=== PATIENT | female | born 1960 | race Caucasian/White ===

== ENCOUNTER 2019-12-01 05:52 | Emergency (ER) | payer OTHER, BC, SELFPAY ==
--- NOTE | ~2019-12-01 | XR_ITS ---
EXAMINATION: XR hip RT 2V w AP pelvis EXAM DATE: 12/01/2019 06:44 INDICATION: Initial encounter following injury, with pain of the pelvic, right hip. TECHNIQUE: Right hip frontal, crosstable lateral and 'frog-leg' projections for interpretation. Front al projection pelvis. There is no prior study for comparison. FINDINGS: Smooth right hip femoral head contour, no radiographic evidence of avascular necrosis. Sa adyan, sacroiliac joints, sacral arcuate lines are intact. There are no acute fractures or dislocation s identified. There is no subcutaneous gas. The soft tissue is unremarkable. There are no radiopa que foreign bodies. There is mild symmetric bilateral hip primary osteoarthritis. IMPRESSION: 1. XR hip RT 2V w AP pelvis exam without acute osseous findings. 2. Mild symmetric bilateral hip osteoarthritis. Reviewed, dictated and finalized at location A. GER EXPRESS
--- NOTE | ~2019-12-01 | XR_ITS ---
EXAMINATION: XR shoulder LT min 2V EXAM DATE: 12/01/2019 06:44 INDICATION: Initial encounter following injury, with pain of the left shoulder. TECHNIQUE: The following left shoulder projections obtained: frontal projection with internal rotatio n, frontal projection with external rotation, Grashey, and scapular Y view (4+ views). There is no p rior study for comparison. FINDINGS: No evidence of left shoulder rotator cuff calcific tendinosis. There is mild left should er primary osteoarthritis. There are no acute fractures or dislocations identified. There is no subc utaneous gas. The soft tissue is unremarkable. There are no radiopaque foreign bodies. IMPRESSION: 1. XR shoulder LT min 2V exam without acute osseous findings. Reviewed, dictated and finalized at location A. PENDENT AGENT MUSIC EDUCATION
[2019-12-01 05:57] VITALS: BP 133/83; PULSE 89; RESP 16; TEMP 36.4; O2SAT 99
--- NOTE | 2019-12-01 06:02 | ED.FALL ---
HPI - Fall General Chief Complaint: Fall Stated Complaint: fall Time Seen by Provider: 12/01/19 06:01 History of Present Illness HPI Narrative: She slipped and fell yesterday. She landed on her buttocks and caught herself with her left hand as well. She required help to get off the ground. She has pain in the sacrum, right hip, and left shoulder. She has been ambulatory since that time. She reports limited ROM in the left shoulder. No weakness, numbness, wound. She has not tried anything to treat her pain. Related Data Home Medications Medication Instructions Recorded Confirmed esomeprazole magnesium 40 mg PO DAILY 11/10/19 11/10/19 ferrous sulfate [Iron (ferrous 325 mg PO DAILY 11/10/19 11/10/19 sulfate)] abatacept 125 mg/mL subcutaneous 125 mg SUB-Q WEEKLY 11/13/19 auto-injector oxycodone-acetaminophen 12/01/19 Allergies Allergy/AdvReac Type Severity Reaction Status Date / Time hydrocodone AdvReac Severe Abdominal Verified 12/01/19 06:03 Pain Review of Systems Review of Systems: All systems reviewed & are unremarkable except as noted in HPI and below Constitutional: Constitutional: Denies fever(s) Eyes: Eyes: Denies change in vision Cardiovascular: Cardiovascular: Denies chest pain Respiratory: Respiratory: Denies dyspnea Gastrointestinal: Gastrointestinal: Denies abdominal pain Musculoskeletal: Musculoskeletal: Reports back pain Neurologic: Denies dizziness [facility] Past Medical History Medical History (Updated 12/01/19 @ 07:24 by Vasquez Mullins MD) Hypothyroid Mixed hyperlipidemia Obesity, morbid Rheumatoid arthritis, unspecified Surgical History Surgical History (Updated 12/01/19 @ 06:34 by Vasquez Mullins MD) H/O gastric bypass Family History Family History Mother Diabetes mellitus Hypertension Family history of elevated blood lipids Family history of cardiovascular disease Family history of malignant neoplasm of breast in first degree relative Father Hypertension Family history of lung cancer Other Family history of allergic disorder Family history of arthritis Family history of malignant neoplasm of breast Social History Social History Smoking status: Never smoker Alcohol intake: never Exam Const: General: no acute distress and alert Nutritional Appearance: obese Orientation/consciousness: patient oriented x3 HENMT: Head: normal to inspection Neck: Neck: normal visual inspection Resp: Effort & Inspection: normal respiratory effort Auscultation: clear to auscultation bilaterally Cardio: Rate: regular rate Rhythm: regular rhythm Back/Spine/Pelvis: Other: tender over saccrum Skin: General skin exam: normal color Rashes: no rashes Wounds: no wounds Neuro: General: patient oriented x3 and moves all extremities Speech: normal speech Extrem: Other: Tender over left anterior deltoid. Full ROM. Tender over right hip. Full ROM. Course Vital Signs Vital signs: Vital Signs Temperature 36.4 C 12/01/19 05:57 Pulse Rate 89 12/01/19 05:57 Respiratory Rate 16 12/01/19 05:57 Blood Pressure 133/83 12/01/19 05:57 Pulse Oximetry 99 12/01/19 05:57 Temperature 36.4 C 12/01/19 05:57 Pulse Rate 80 12/01/19 07:31 Respiratory Rate 17 12/01/19 07:31 Blood Pressure 133/83 12/01/19 07:31 Pulse Oximetry 99 12/01/19 07:31 MDM - Fall MDM Narrative Medical decision making narrative: No objective evidence of trauma on exam.. I do not suspect fracture or any significant injury. Will get x-rays to confirm.. Differential Diagnosis Differential diagnosis: Likely other (AC seperation, humerus fracture, saccral fracture, hip fracture, contusion, strain, other) Medical Records Attestation: I reviewed the patient's medical records. Lab Data Attestation: I reviewed the patient's lab r
[2019-12-01 07:31] VITALS: BP 133/83; PULSE 80; RESP 17; O2SAT 99
== END 2019-12-01 07:33 | disposition home or self-care (01) ==
PROVIDERS: Emergency Provider Emergency Medicine; PCP Family Medicine
DX: S30.0XXA Contusion of lower back and pelvis, initial encounter (principal); S46.912A Strain of unspecified muscle, fascia and tendon at shoulder and upper arm level, left arm, initial encounter; E03.9 Hypothyroidism, unspecified; E78.2 Mixed hyperlipidemia; E66.9 Obesity, unspecified; Z68.39 Body mass index [BMI] 39.0-39.9, adult; Z98.84 Bariatric surgery status; W01.0XXA Fall on same level from slipping, tripping and stumbling without subsequent striking against object, initial encounter
CPT/HCPCS: 73030; 73502; 73521; 99284

== ENCOUNTER 2020-08-27 08:59 | Outpatient (CLI) | payer BC, SELFPAY ==
--- NOTE | ~2020-08-27 | MM_ITS ---
EXAMINATION: MM screening keyanna BI w cheryle HISTORY: Screening TECHNIQUE: Craniocaudal and mediolateral oblique 3-D tomosynthesis images were obtained and synthetic 2-D images were generated. CAD analysis was submitted and interpreted. COMPARISON: Comparison to multiple prior studies sequentially, with oldest reviewed study dated 04/06. BREAST PARENCHYMAL COMPOSITION: There are scattered areas of fibroglandular density. FINDINGS: There is a cluster of nonspecific calcifications in the upper outer quadrant of the left br east. No mammographic evidence for malignancy in the right breast. IMPRESSION: 1. Clustered nonspecific right breast calcifications. 2. Magnification views are recommended. BI-RADS Category 0: Incomplete: Needs additional imaging evaluation. Reviewed, dictated and finalized at location A.
== END 2020-08-27 09:00 | disposition home or self-care (01) ==
PROVIDERS: PCP Family Medicine; Visit Provider Family Medicine
DX: Z12.31 Encounter for screening mammogram for malignant neoplasm of breast (principal); R92.8 Other abnormal and inconclusive findings on diagnostic imaging of breast
CPT/HCPCS: 77063; 77067

== ENCOUNTER 2020-09-03 14:14 | Outpatient (CLI) | payer BC, SELFPAY ==
--- NOTE | ~2020-09-03 | MMUS_ITS ---
EXAMINATION: MM diagnostic mammo unilat LT, US breast LT limited HISTORY: Low ventricles seen or significant clustered nonspecific right breast calcifications reporte d in upper outer quadrant of left breast on 08/27/2020 screening mammogram TECHNIQUE: Additional 3-D ML tomosynthesis images of left breast were performed and synthetic 2-D efrain ges were generated. Magnification views of left breast. CAD analysis was submitted and interpreted. H igh resolution breast ultrasound was performed. COMPARISON: 08/27/2020 bilateral digital screening mammogram 06/09/2019 bilateral digital screening mammogram FINDINGS: MAMMOGRAPHIC FINDINGS: There are numerous calcified microhematomas of the left breast in multiple punctate benign-appearing microcalcifications. However, there is one cluster of grouped granular appearing indeterminate microc alcifications in the upper outer quadrant of the left breast. ULTRASOUND: Sonographic interrogation of the upper outer quadrant left breast reveals no evidence of suspicious m ass or shadowing. IMPRESSION: 1. Indeterminate cluster grouped microcalcifications in the upper outer quadrant of left breast 2. . Stereotactic biopsy of cluster grouped microcalcifications in upper outer quadrant of left breas t is recommended BI-RADS category 4, suspicious findings. Dr. Whitaker telephoned the report to Dr. Pacheco's captain's assistant's voicemail on 09/03/2020 at 1520 hours. Reviewed, dictated and finalized at location A. IMPRESSION: 1. Indeterminate cluster grouped microcalcifications in the upper outer quadran t of left breast 2. . Stereotactic biopsy of cluster grouped microcalcifications in upper outer quadrant of left breast is recommended BI-RADS category 4, suspicious findings. Dr. Whitaker telephoned the report to Dr. Pacheco's captain's assistant's voicemail on 09/03/20 at 1520 hours. IMPRESSION: 1. Indeterminate cluster grouped microcalcifications in the upper outer quadran t of left breast 2. . Stereotactic biopsy of cluster grouped microcalcifications in upper outer quadrant of left breast is recommended BI-RADS category 4, suspicious findings. Dr. Whitaker telephoned the report to Dr. Pacheco's captain's assistant's voicemail on 09/03/20 20 at 1520 hours.
== END 2020-09-03 14:15 | disposition home or self-care (01) ==
LOC: ANHIMG 14:16
PROVIDERS: PCP Family Medicine; Visit Provider Family Medicine
DX: R92.1 Mammographic calcification found on diagnostic imaging of breast (principal)
CPT/HCPCS: 76642; 77065

== ENCOUNTER 2020-09-17 10:39 | Outpatient (CLI) | payer BC, SELFPAY ==
--- NOTE | ~2020-09-17 | MM_ITS ---
MM stereotactic bx LT, MM post biopsy diagnostic LT, MM stereotactic specimen LT EXAMINATION: MM ster eotactic bx LT, MM post biopsy diagnostic LT, MM stereotactic specimen LT DATE: 09/17/2020 INDICATION: Abnormal calcifications in the left breast. Stereotactic core biopsy is requested evalua te for malignancy.] TECHNIQUE AND FINDINGS: The risks and potential benefits of the procedure were discussed with the patient and written informe d consent was obtained. The patient was placed in the prone position clustered at the table with the left breast in craniocaudal compression, and the area of interest was localized and targeted utilizi ng digital imaging with stereotaxis. After sterile preparation of the skin, 1% lidocaine was utilized for local anesthesia at the skin pun cture site and 1% lidocaine with epinephrine was utilized for deeper local anesthesia/is about the bi opsy site. A 9G [employer] vacuum assisted biopsy needle was advanced to the level of the calcification o f interest from a cephalad approach utilizing stereotactic guidance and a total of 6 tissue core biop sies were obtained. A specimen radiograph demonstrates that the calcifications of interest are included within the tissue cores. A tissue marker clip was then placed at the biopsy site. The needle was removed and hemosta sis was achieved. The patient tolerated the procedure well and there is no evidence of significant i mmediate complication. The patient was given verbal as well as written postprocedural instructions p rior to discharge from the department. Tissue cores were submitted to surgical pathology for histolo gic analysis. A 2-view left unilateral digital mammogram was obtained post procedure and this demonstrates that the tissue marker clip is in expected position.] IMPRESSION: 1. Successful stereotactic biopsy of calcifications in the upper outer quadrant of the left breast, followed by tissue marker clip placement. Please refer to pathology report for histologic analysis. Reviewed, dictated and finalized at location A. WORKER IMPRESSION: 1. Successful stereotactic biopsy of calcifications in the upper outer quadran t of the left breast, followed by tissue marker clip placement. Please refer t o pathology report for histologic analysis. IMPRESSION: 1. Successful stereotactic biopsy of calcifications in the upper outer quadran t of the left breast, followed by tissue marker clip placement. Please refer t o pathology report for histologic analysis.
== END 2020-09-17 10:40 | disposition home or self-care (01) ==
PROVIDERS: PCP Family Medicine; Visit Provider Family Medicine
DX: R92.1 Mammographic calcification found on diagnostic imaging of breast (principal)
CPT/HCPCS: 19081; 77065; 88305; 88342

== ENCOUNTER 2020-11-12 06:50 | Outpatient (NON) | payer BC, SELFPAY ==
[2020-11-12 18:45] LABS: SARS-CoV-2 RNA PCR Positive
== END 2020-11-12 06:51 ==
PROVIDERS: PCP Family Medicine; Visit Provider Physician Assistant
DX: U07.1 COVID-19 (principal)
CPT/HCPCS: 87635; C9803; U0003

== ENCOUNTER 2021-10-15 09:28 | Outpatient (CLI) | payer BC, SELFPAY ==
--- NOTE | ~2021-10-15 | MM_ITS ---
EXAMINATION: MM screening keyanna BI w cheryle HISTORY: Screening mammogram TECHNIQUE: Craniocaudal and mediolateral oblique 3-D tomosynthesis images were obtained and synthetic 2-D images were generated. CAD analysis was submitted and interpreted. COMPARISON: 09/03/2020 diagnostic left mammogram and limited left breast ultrasound 08/27/2020, 06/09/2019, 12/11/2016 bilateral screening mammogram examinations BREAST PARENCHYMAL COMPOSITION: There are scattered areas of fibroglandular density. FINDINGS: Previously reported subtle grouped microcalcifications in the upper outer quadrant of the l eft breast are no longer identified; history of benign left breast biopsy in 2019. There are multiple bilateral scattered benign calcifications. Subtle microcalcifications are noted posteriorly in the upper outer right breast. Diagnostic right ma mmogram with magnification views is recommended. Subtle grouped granular appearing microcalcifications are noted in the outer left breast at mid depth on craniocaudal view. Diagnostic left mammogram with magnification views is recommended.. IMPRESSION: 1. Bilateral indeterminate microcalcifications 2. Bilateral diagnostic mammography with magnification views is recommended BI-RADS Category 0: Incomplete: Needs additional imaging evaluation. Reviewed, dictated and finalized at location A. C THEORY TEACHER
== END 2021-10-15 09:29 | disposition home or self-care (01) ==
LOC: ANHIMG 09:30
PROVIDERS: PCP Family Medicine; Visit Provider Family Medicine
DX: Z12.31 Encounter for screening mammogram for malignant neoplasm of breast (principal); R92.8 Other abnormal and inconclusive findings on diagnostic imaging of breast
CPT/HCPCS: 77063; 77067

== ENCOUNTER 2021-11-03 10:41 | Outpatient (CLI) | payer BC, SELFPAY ==
--- NOTE | ~2021-11-03 | MM_ITS ---
EXAMINATION: MM diagnostic mammo BI HISTORY: Bilateral indeterminate breast calcifications on screening mammography TECHNIQUE: Additional views of the breasts were performed. CAD analysis was submitted and interpreted . COMPARISON: 10/15/2020, 09/03/2020, 08/27/2020, 06/09/2019 FINDINGS: Left breast: There are stable grouped calcifications in the middle/posterior third of the upper-outer quadrant breast at the 2:00 location approximately 12 cm from the nipple which have undergone interv al biopsy. Right breast: No suspicious grouped calcifications are identified with magnification views of the rig ht breast. IMPRESSION: 1. No mammographic evidence of malignancy. 2. Recommend routine screening mammography in one year. BI-RADS Category 2: Benign finding(s). Reviewed, dictated and finalized at location A. ENTIALER
== END 2021-11-03 10:42 | disposition home or self-care (01) ==
LOC: ANHIMG 10:43
PROVIDERS: PCP Family Medicine; Visit Provider Family Medicine
DX: R92.1 Mammographic calcification found on diagnostic imaging of breast (principal)
CPT/HCPCS: 77066

== ENCOUNTER 2023-01-08 14:21 | Outpatient (NON) | payer BC, SELFPAY ==
[2023-01-08 16:05] LABS: IFOB Positive Control Positive; Immunochemical Fecal Occult Bl Negative (N)
== END 2023-01-08 14:22 | disposition home or self-care (01) ==
PROVIDERS: PCP Family Medicine; Visit Provider Family Medicine
DX: Z12.11 Encounter for screening for malignant neoplasm of colon (principal)
CPT/HCPCS: 82274

== ENCOUNTER 2023-01-19 08:02 | Outpatient (CLI) | payer BC, SELFPAY ==
--- NOTE | ~2023-01-19 | DEXA_ITS ---
Bone Density Report Name: MARI CORDERO Age: 62 Sex: Female Ethnicity: White Date of : 1960 Indication: osteopenia; prior fracture; hysterectomy; rheumatoid arthritis; postmenopausal Referring Provider: ADAIR WALLER Study: Bone densitometry was performed. Exam Date: January 19, 2023 Accession number: [id number] Bone Density: Region BMD T-score Z-score Classification AP Spine(L1-L4) 0.694 -3.2 -1.5 Osteoporosis Femoral Neck (Left) 0.584 -2.4 -0.9 Osteopenia Total Hip (Left) 0.693 -2.0 -0.8 Osteopenia Femoral Neck (Right) 0.584 -2.4 -0.9 Osteopenia Total Hip (Right) 0.712 -1.9 -0.7 Osteopenia Total Hip Mean 0.702 -2.0 -0.8 Osteopenia World Health Organization criteria for BMD impression classify patients as: Normal (T-score at or above -1.0), Osteopenia (T-score between -1.0 and -2.5), or Osteoporosis (T-score at or below -2.5). 10-year Fracture Risk: FRAX not reported because: Some T-score for Spine Total or Hip Total or Femoral Neck at or below -2.5 Previous Exams: Region Exam Age BMD T-score BMD Change BMD Change Date g/cm2 vs Baseline vs Previous AP Spine (L1-L4) 01/19/2023 62 0.694 -3.2 -0.129 (-15.6% -0.129 (-15.6% 06/09/2019 59 0.823 -2.0 Total Hip(Left) 01/19/2023 62 0.693 -2.0 -0.044 (-5.9%) -0.044 (-5.9%) 06/09/2019 59 0.736 -1.7 Total Hip(Right) 01/19/2023 62 0.712 -1.9 -0.028 (-3.8%) -0.028 (-3.8%) 06/09/2019 59 0.740 -1.7 *Denotes significance at 95% confidence level, LSC for AP Spine = 0.022 g/cm2, LSC for Total Hip = 0.027 g/cm2 # Denotes dissimilar scan types or analysis methods Clinical Information Provided by Patient: Has had a low trauma fracture Has rheumatoid arthritis Has used the following medications: Vitamin D Has the following medical conditions: Hysterectomy Patient maximum height was 67 Menopause Age: 23 No regular weight bearing exercise Does not regularly consume dairy products Drinks caffeinated beverages Onset of menses at age 10 Number of children 1 Impression: The patient has established osteoporosis, based on the Total Spine T-score and the existence of a prior fracture. The patient has risk factors, including: previous fracture. The BMD for the AP Spine (L1-L4) decreased, changing by -15.6% since the last DXA exam. The BMD for the Total Hip(Right) decreased, changing by -3.8% since the last DXA exam. Discussion: HIGH RISK OF FRACTURE. BONE DENSITY IS UNDESIRABLY
--- NOTE | ~2023-01-19 | MM_ITS ---
EXAMINATION: MM screening keyanna BI w cheryle HISTORY: Screening mammogram, family history of breast cancer in her mother. TECHNIQUE: Craniocaudal and mediolateral oblique 3-D tomosynthesis images were obtained and synthetic 2-D images were generated. CAD analysis was submitted and interpreted. COMPARISON: 11/03/2021, 10/15/2021, 09/03/2020, 08/27/2020, 06/09/2019 BREAST PARENCHYMAL COMPOSITION: The breasts are heterogeneously dense, which may obscure small masses . FINDINGS: Scattered benign-appearing calcifications are present. No suspicious mass, calcification, o r architectural distortion are identified in either breast to suggest malignancy. There has been no s uspicious interval change. IMPRESSION: 1. No mammographic evidence of malignancy. 2. Recommend routine screening mammography in one year. BI-RADS Category 2: Benign finding(s). Reviewed, dictated and finalized at location A. ER OPERATOR
== END 2023-01-19 08:03 | disposition home or self-care (01) ==
PROVIDERS: PCP Family Medicine; Visit Provider Family Medicine
DX: Z12.31 Encounter for screening mammogram for malignant neoplasm of breast (principal); Z78.0 Asymptomatic menopausal state; M81.0 Age-related osteoporosis without current pathological fracture; M85.852 Other specified disorders of bone density and structure, left thigh; M85.851 Other specified disorders of bone density and structure, right thigh
CPT/HCPCS: 77063; 77067; 77080

== ENCOUNTER 2024-03-09 13:37 | Outpatient (CLI) | payer BC, OTHER, SELFPAY ==
[2024-03-09 21:39] LABS: Alanine Aminotransferase 16 U/L (6-35); Albumin Level 3.9 g/dL (3.5-5.1); Alkaline Phosphatase 173 U/L (38-126); Anion Gap 3 mmol/L (4-12); Aspartate Amino Transferase 32 U/L (14-36); Bilirubin,Total 0.6 mg/dL (0.2-1.3); Blood Urea Nitrogen 10 mg/dL (7-17); Calcium 9.4 mg/dL (8.4-10.2); Carbon Dioxide 30 mmol/L (22-30); Chloride 107 mmol/L (98-107); Cholesterol 184 mg/dL (0-200); Estimated Glomerular Filt Rate > 60; Glucose 106 mg/dL (65-110); HDL Direct 61 mg/dL; Potassium 4.5 mmol/L (3.4-5.0); Sodium 140 mmol/L (137-145); Triglycerides 120 mg/dL (<150)
[2024-03-09 21:51] LABS: LDL Cholesterol Direct 92 mg/dL
[2024-03-09 22:04] LABS: Hepatitis C Virus Antibody Negative (Negative)
[2024-03-09 22:22] LABS: Hemoglobin A1C 5.3 % (<5.7)
== END 2024-03-09 13:38 | disposition home or self-care (01) ==
LOC: ANHGOSHLAB 13:39
PROVIDERS: PCP Family Medicine; Visit Provider Family Medicine
DX: E55.9 Vitamin D deficiency, unspecified (principal); E78.2 Mixed hyperlipidemia; E74.39 Other disorders of intestinal carbohydrate absorption; Z11.59 Encounter for screening for other viral diseases; E53.8 Deficiency of other specified B group vitamins; E03.9 Hypothyroidism, unspecified
CPT/HCPCS: 36415; 80053; 80061; 82306; 82607; 83036; 84443; 86803

== ENCOUNTER 2024-08-04 13:59 | Outpatient (CLI) | payer BC, OTHER, SELFPAY ==
--- NOTE | ~2024-08-04 | MM_ITS ---
EXAMINATION: MM screening keyanna BI w cheryle HISTORY: Screening mammogram, family history of breast cancer in her mother. TECHNIQUE: Craniocaudal and mediolateral oblique 3-D tomosynthesis images were obtained and synthetic 2-D images were generated. CAD analysis was submitted and interpreted. COMPARISON: 01/19/2023, 10/15/2021 BREAST PARENCHYMAL COMPOSITION:Not Dense. There are scattered areas of fibroglandular density. FINDINGS: No suspicious mass, calcification, or architectural distortion are identified in either evert ast to suggest malignancy. There has been no suspicious interval change. IMPRESSION: No mammographic evidence of malignancy. Recommend routine screening mammography in one year. BI-RADS Category 1: Negative Reviewed, dictated and finalized at location .
== END 2024-08-04 14:00 | disposition home or self-care (01) ==
LOC: ANHIMG 14:02
PROVIDERS: PCP Family Medicine; Visit Provider Family Medicine
DX: Z12.31 Encounter for screening mammogram for malignant neoplasm of breast (principal)
CPT/HCPCS: 77063; 77067

== ENCOUNTER 2024-08-25 13:37 | Outpatient (CLI) | payer BC, OTHER, SELFPAY ==
--- NOTE | ~2024-08-25 | XR_ITS ---
Right wrist Technique: PA, oblique, lateral, and ulnar deviation views were obtained. Clinical History: Pain Findings: No acute fracture or dislocation is seen. Osseous alignment is anatomic. Joint spaces are p reserved. Soft tissues are unremarkable. Impression: Unremarkable right wrist radiographs. Reviewed, dictated and finalized at location . Impression: Unremarkable right wrist radiographs.
== END 2024-08-25 13:38 | disposition home or self-care (01) ==
LOC: ANHASCIMG 13:41
PROVIDERS: PCP Family Medicine; Visit Provider Student in an Organized Health Care Education/Training Program
DX: M25.531 Pain in right wrist (principal)
CPT/HCPCS: 73110

== ENCOUNTER 2024-09-19 11:25 | Outpatient (CLI) | payer BC, OTHER, SELFPAY ==
--- NOTE | ~2024-09-19 | CT_ITS ---
Non-contrast Head CT History: Memory change Technique: Axial non-contrast imaging of the brain was performed. Dose reduction technique was used on this scan by utilizing automated exposure control and iterative reconstruction technique. The dose -length product (DLP) was 726.40 mGy-cm. Findings: There is no evidence of intracranial hemorrhage, mass lesion, or acute infarct. There are minimal chronic white matter changes in the periventricular white matter/subcortical white matter heather aterally.. The ventricles and subarachnoid spaces are normal in size. The calvarium appears normal. The visualized paranasal sinuses and mastoid air cells are clear. Impression: Minimal chronic microvascular ischemic changes. No intracranial hemorrhage, mass lesion, or acute infarct evident. Reviewed, dictated and finalized at [facility]. IESEL PRODUCTION TECHNICIAN Impression: Minimal chronic microvascular ischemic changes. No intracranial hemorrhage, mass lesion, or acute infarct evident.
== END 2024-09-19 11:26 | disposition home or self-care (01) ==
LOC: GOSHIMG 11:26
PROVIDERS: PCP Family Medicine; Visit Provider Student in an Organized Health Care Education/Training Program
DX: R41.3 Other amnesia (principal)
CPT/HCPCS: 70450

== ENCOUNTER 2025-04-19 10:06 | Outpatient (NON) | payer BC, MEDICARE, SELFPAY ==
--- OUTSIDE RECORDS SUMMARY | 2025-04-19 11:03 | XMS_ITS | Patient Health Record ---
Author Organization [facility] josé miguel Address [address] [place] [address] Care Team Providers Care Sidewalk Inspector Name Role Phone Hernandez Santana MD Primary Care Provider Cecelia De La Paz Unavailable [phone] Hoang Pacheco MD Unavailable Unavailable Allergies Allergen (clinical drug ingredient) Drug/Non Drug Allergy documented on EMR Reaction Allergy Type Onset Date Status Iodine Unknown Drug Allergy 02/19/2018 Active hydroxychloroquine Plaquenil Reaction: dry mouth Notes: 09/29/2019 - dry mouth Drug Allergy 09/29/2019 Active infliximab Remicade Reaction: caused psoriasis Drug Allergy 02/19/2018 Active Results Component Value Reference Range Notes CASSANDRA reflex titer pattern JENNIFFER + dsDNA Reviewed date:10/17/2024 04:14:38 PM Interpretation: Performing Lab:[facility] , [address]. [facility] [address] Notes/Report: CASSANDRA, Qual Positive 1:160 Interpretive Data Normal range for CASSANDRA Qualitative Antibody = Negative. 1. CASSANDRA is performed using indirect immunofluorescence against HEp-2 cells 2. CASSANDRA titers are performed on all positive qualitative results. 3. A significantly positive CASSANDRA result is defined as a positive nuclear fluorescence at a titer of 1:80 or greater. 4. 15% of normal people above age 65 have significantly positive CASSANDRA results. 5% or less of normal people age 65 or under have significantly positive CASSANDRA results. Current interpretive data was last revised on 2020. Testing performed by: [facility], [address] [place]., [address] CASSANDRA, Fili 1:160 Testing performed by: [facility], [address] [place]., [address] CASSANDRA Pattern 1 Speckled Testing performed by: [facility], [address] [facility], [place]., [address] Anti-CCP (Cyclic Citrullinat ed Peptide Ab) Reviewed date:10/17/2024 01:42:56 PM Interpretation: Performing Lab:[facility] , [address] [place] [address]. [facility] [address] Notes/Report: CCP Ab >300.0 <=2.9 units/mL Interpretive data Negative: <3 units/mL Positive: > or equal to 3 units/mL Current interpretive data was last revised on 2017. C Reactive Protein Reviewed date:10/16/2024 04:42:55 PM Interpretation: Performing Lab:[facility] , [address] [place] [address]. [facility] [address] Notes/Report: C-Reactive Protein <3.0 <=10.0 mg/L CBC w auto diff Reviewed date:10/16/2024 04:31:41 PM Interpretation: Performing Lab:[facility] , [address] [place] [address]. [facility] [address] Notes/Report: WBC 4.4 3.8-9.9 K/cumm Hgb 11.5 11.9-15.5 g/dL Hct 37.6 35.6-45.5 % Platelet Ct 236 150-400 K/cumm MPV 11.7 9.1-12.3 fL RBC 4.28 3.90-5.20 M/cumm MCV 87.9 81.3-96.4 fL MCH 26.9 27.1-33.3 pg MCHC 30.6 32.3-35.7 g/dL RDW CV 14.3 11.1-14.9 % RDW SD 46.3 35.7-48.1 fL NRBC Abs Auto 0.00 0.00-0.01 K/cumm Complement C3 Reviewed date:10/16/2024 04:42:55 PM Interpretation: Performing Lab:[facility] , [address] [place] [address]. [facility] [address] Notes/Report: Complement, C3 126 90-180 mg/dL Complement C4 Reviewed date:10/16/2024 04:42:55 PM Interpretation: Performing Lab:[facility] , [address] [place] [address]. [place] [address] Notes/Report: Complement, C4 27 10-40 mg/dL Comprehensive metabolic pane l (CMP) Reviewed date:10/16/2024 04:42:55 PM Interpretation: Performing Lab:[facility] , [address] [place] [address]. [place] [address] Notes/Report: Sodium 140 135-145 mmol/L Plasma Potassium 4.5 3.3-4.9 mmol/L Chloride 104 97-110 mmol/L Total CO2 27 22-32 mmol/L Anion Gap 9 2-15 mmol/L BUN 7 6-25 mg/dL Creatinine 1.08 0.60-1.10 mg/dL Glucose 89 70-199 mg/dL Interpretive Data Fasting glucose >/= 126 mg/dl is diagnostic for diabetes. Fasting is defined as no caloric intake for at least 8 hours. Fasting glucose between 100 mg/dl to 125 mg/dl is diagnostic of prediabetes. In a patient with classic symptoms of hyperglycemia or hyperglycemic crisis, a random glucose >/= 200 mg/dl is diagnostic for diabetes. In the absence of unequivocal hyperglycemia, results should be confirmed by repeat testing. The classification and Diagnosis of Diabetes Diabetes Care 2021; 46: S19-S40. Current interpretive data was last revised 2022. Total Calcium 9.0 8.5-10.3 mg/dL Total Bilirubin 0.4 0.1-1.2 mg/dL Plasma Total Protein 6.2 6.5-8.5 g/dL Albumin 3.5 3.5-5.0 g/dL Alkaline Phosphatase 113 40-130 Units/L ALT 15 7-45 Units/L AST 19 10-45 Units/L Creatine Kinase Reviewed date:10/16/2024 04:42:55 PM Interpretation: Performing Lab:[facility] , [address] [place] [address]. [place] [address] Notes/Report: Total CK 46 30-200 Units/L QTB Gold Reviewed date:10/18/2024 04:55:28 PM Interpretation: Performing Lab:[facility] , [address] [place] [address]. [place] [address] Notes/Report: QuantiFERON TB Gold Negative Negative No interferon-gamma response to M. tuberculosis antigens was detected. Latent infection with M. tuberculosis is unlikely. A single negative result does not exclude infection with M. tuberculosis. In patients at high risk for M.tuberculosis infection, a second test should be considered in accordance with the 2017 ATS/IDSA/CDC Clinical Practice Guidelines for Diagnosis of Tuberculosis in Adults and Children [Venkatesh MILES et. al. Clin. Infect. Dis. 2017;64(2):111-115]. The reference range for the 'TB1 Ag minus Nil Result' and 'TB2 Ag minus Nil Result' is an Interferon-gamma level <0.35 IU/mL. TB-Nil 0.06 TB2-Nil 0.04 Mitogen-Nil 6.84 NIL 0.00 Test Performed by: [place] [address] Compressor Mechanic: Moustapha Wade Ph.D.; CLIA# [id number] Rheumatoid Factor Reviewed date:10/16/2024 04:42:55 PM Interpretation: Performing Lab:[facility] , [address] [place] [address]. [facility] [address] Notes/Report: RF, Fili 42 <=15 IUnits/mL Sed Rate Reviewed date:10/16/2024 04:57:12 PM Interpretation: Performing Lab:[facility] , [address] [place] [address]. [facility] [address] Notes/Report: ESR 20 1-30 mm/hr Differential Automated Reviewed date:10/16/2024 04:31:41 PM Interpretation: Performing Lab:[facility] , [address] [place] [address]. [facility] [address] Notes/Report: Neut Abs 2.3 1.5-6.5 K/cumm ImmGran Abs 0.0 0.0-0.1 K/cumm Lymphocyte Abs 1.4 0.8-3.3 K/cumm Copiah Abs 0.4 0.2-0.8 K/cumm Eos Abs 0.2 0.0-0.5 K/cumm Baso Abs 0.1 0.0-0.1 K/cumm Neut Pct 52.0 Interpretive Data Percent cell count reference ranges are not reported, since discordance with absolute values may lead to misinterpretation of CBC data. Current Interpretive Data was last revised on 2018. ImmGran Pct 0.2 Interpretive Data Percent cell count reference ranges are not reported, since discordance with absolute values may lead to misinterpretation of CBC data. Current Interpretive Data was last revised on 2018. Lymph Pct 32.4 Interpretive Data Percent cell count reference ranges are not reported, since discordance with absolute values may lead to misinterpretation of CBC data. Current Interpretive Data was last revised on 2018. Copiah Pct 9.5 Interpretive Data Percent cell count reference ranges are not reported, since discordance with absolute values may lead to misinterpretation of CBC data. Current Interpretive Data was last revised on 2018. Eos Pct 4.3 Interpretive Data Percent cell count reference ranges are not reported, since discordance with absolute values may lead to misinterpretation of CBC data. Current Interpretive Data was last revised on 2018. Baso Pct 1.6 Interpretive Data Percent cell count reference ranges are not reported, since discordance with absolute values may lead to misinterpretation of CBC data. Current Interpretive Data was last revised on 2018. DS DNA Reviewed date:10/19/2024 12:12:22 PM Interpretation: Performing Lab:[facility] , [address]. [place] [address] Notes/Report: Double Stranded DNA, Fili <1.0 <=4.0 IUnits/mL Interpretive Data Negative: < or = 4 IUnits/mL Indeterminate: 5 - 9 IUnits/mL Positive: > or = 10 IUnits/mL Current interpretive data was last revised on 2017. JENNIFFER Screen Reviewed date:10/19/2024 12:12:11 PM Interpretation:Lab Result Generalized Performing Lab:[facility] , [address] [facility]. [place] [address] Notes/Report: JENNIFFER Screen Negative Negative Interpretive Data Positive Screens will be reflexed to specific testing for Antibodies against the following antigens: Antonia-1 Ab, COTTON CONVERTER Ab, Scl-70 Ab, Martell Ab, SS-A/Ro Ab, and SS-B/La Ab. Further testing for dsDNA, Centromere, or Ribosomal P antibodies is suggested in patient with a positive screen and negative specific antibodies. Current interpretive data was last revised on 2023. eGFR Reviewed date:10/16/2024 04:42:55 PM Interpretation: Performing Lab:[facility] , [address] [facility] [place] [address] Notes/Report: eGFR 57 >=60 mL/min/1.73 m2 Interpretive Data Reference Interval Normal >/= 90 mL/min/1.73m2 Mildly decreased* 60 - 89 mL/min/1.73m2 Mildly to moderately decreased 45 - 59 mL/min/1.73m2 Moderately to severely decreased 30 - 44 mL/min/1.73m2 Severely decreased 15 - 29 mL/min/1.73m2 Kidney Failure < 15 mL/min/1.73m2 *Relative to young adult level Estimated glomerular filtration rate is determined by the 2020 CKD-EPI equation recommended by the National Kidney Foundation (A Unifying Approach to GFR Estimation: Recommendations of the NKF-ASK Task Force on Reassessing the Inclusion of Race in Diagnosing Kidney Disease, JASN 2020). The CKD-EPI equation should not be used for patients with unstable renal function and has not been validated in children and those over 70. Current interpretive data was last reviewed 2021. Reason For Referral No Information Medications Medication SIG (Take, Route, Frequency, Duration) Notes Start Date End Date Status oxyCODONE-Acetaminophen 5-32 5 MG 1/2 tablet prn Oral for 30 Days Active Hydroxychloroquine Sulfate 200 MG 1 Orally once daily with food for 90 days 02/06/2025 05/07/2025 Active Esomeprazole Magnesium 40 MG TAKE 1 CAPS ULE BY MOUTH DAILY Oral for 90 Days Active Levothyroxine Sodium 50 MCG TAKE 1 TABLE T BY MOUTH DAILY Oral for 90 Days Active tiZANidine HCl 2 MG TAKE 1 TO 2 TABLETS BY MOUTH AT BEDTIME NEEDED Oral for 30 days Active Vitamin D (Ergocalciferol) 24754 UNIT take 1 capsule (50,000 unit) by oral route once weekly Oral [id number] Active FLUoxetine HCl 20 MG 1 capsule Orally On ce a day for 30 day(s) Active Vitamin B12 1000 MCG 1 tablet Orally Onc e a day for 30 day(s) Active predniSONE 5 MG 1 Oral every other day for 30 days Active Problems Problem Type SNOMED Code ICD Code Onset Dates Problem Status W/U Status Risk Notes Problem Rheumatoid arthritis (49174392) 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) Active confirmed Problem Rheumatoid arthritis (80165834) Rheumatoid arthritis without rheumatoid factor, unspecified site (M06.00) Active confirmed Problem Lupus (978788658) Lupus (M32.9) Active confirmed Problem Rheumatoid arthritis, unspecified (M06.9) Active confirmed Problem Systemic lupus erythematosus, unspecified (M32.9) Active confirmed Vital Signs Heart Rate 94 /min 02/06/2025 Temperature 98.2 degrees Fahrenheit 02/06/2025 Blood pressure diastolic 80 mm Hg 02/06/2025 Oximetry 98 % 02/06/2025 Height-cm 170.18 cm 02/06/2025 Weight-kg 105.67 kg 10/10/2024 Height 67 in 02/06/2025 Blood pressure systolic 120 mm Hg 02/06/2025 Weight 233.0 lbs 10/10/2024 BMI 36.49 kg/m2 10/10/2024 Encounters Encounter Location Date Provider Diagnosis [facility] [address] [place] [address] 10/10/2024 Cecelia Patiño Other rheumatoid arthritis with rheumatoid factor of multiple sites M05.89 ; Lupus M32.9 ; High risk medication use Z79.899 and Tooth infection K04.7 [facility] [address] [place] [address] 02/06/2025 Cecelia Patiño Other rheumatoid arthritis with rheumatoid factor of multiple sites M05.89 ; Lupus M32.9 ; High risk medication use Z79.899 and Tooth infection K04.7 [facility] [address] [place] [address] 05/29/2024 [facility] [address] [place] [address] 05/29/2024 [facility] [address] [place] [address] 05/31/2024 [facility] [address] [place] [address] 06/12/2024 [facility] [address] [place] [address] [facility] [address] [place] [address] 10/04/2024 [facility] [address] [place] [address] 10/08/2024 [facility] [address] [place] [address] 11/17/2024 [facility] [address] [place] [address] 11/29/2024 [facility] [address] [place] [address] 2025 Cecelia Patiño Assessments Encounter Date Diagnosis (ICD Code) Assessment Notes Treatment Notes Treatment Clinical Notes Section Notes 10/10/2024 Other rheumatoid arthritis with rheumatoid factor of multiple sites (ICD-10 - M05.89) will restart orencia when she changes insurance in 11/2024, labs today, contineu prednisone prn for now 02/06/2025 Other rheumatoid arthritis with rheumatoid factor of multiple sites (ICD-10 - M05.89) has open wound on left ankle, cannot start orencia, will re-try plaquenil 200mg/day, refill tizanidine, advised to decrease prednisone to 5mg qod 10/10/2024 Lupus (ICD-10 - M32.9) will restart orencia when she changes insurance in 11/2024, labs today, contineu prednisone prn for now 02/06/2025 Lupus (ICD-10 - M32.9) has open wound on left ankle, cannot start orencia, will re-try plaquenil 200mg/day, refill tizanidine, advised to decrease prednisone to 5mg qod 10/10/2024 High risk medication use (ICD-10 - Z79.899) will restart orencia when she changes insurance in 11/2024, labs today, contineu prednisone prn for now 02/06/2025 High risk medication use (ICD-10 - Z79.899) has open wound on left ankle, cannot start orencia, will re-try plaquenil 200mg/day, refill tizanidine, advised to decrease prednisone to 5mg qod 10/10/2024 Tooth infection (ICD-10 - K04.7) will restart orencia when she changes insurance in 11/2024, labs today, contineu prednisone prn for now 02/06/2025 Tooth infection (ICD-10 - K04.7) has open wound on left ankle, cannot start orencia, will re-try plaquenil 200mg/day, refill tizanidine, advised to decrease prednisone to 5mg qod Plan Of Treatment No Information Insurance Providers Payer Name Payer Address Payer Phone Subscriber Number Group Number Insured Name Patient Relationship to Insured Coverage Start Date Coverage End Date [place] [address] [place] [address] [id number] Laurita Arora Self - patient is the insured Medicare [address] [address] [place] [address] [id number] Laurita Arora Self - patient is the insured [facility] [address] [address] [place] [address] [id number] Laurita Arora Self - patient is the insured Medical (General) History Medical History History ICD Code Decreased GFR; Lupus; Rheumatoid arthritis; Surgical History Surgery Date(Month/Year) Knee surgery: left knee - torn ligaments , Date of Procedure: ; 2019-01-20
--- OUTSIDE RECORDS SUMMARY | 2025-04-19 11:03 | XMS_ITS | Clinical Summary ---
Author Organization [facility] Address [address] [place] [address] Care Team Providers Care Panel Flow Machine Operator Name Role Phone Ulises Pacheco MD Primary Care Provider [phone] Allergies Active Allergy Reactions Criticality Noted Date Comments Iodine And Iodide Containing Products Medications cholecalciferol (VITAMIN D-3) 50,000 unit capsule Take 1 capsule (50,000 Units total) by mouth once a week. 4 capsule 2 12/24/2017 Active abatacept (ORENCIA) 125 mg/mL injectionIndica tions:Rheumatoi d Arthritis Inject 1 mL (125 mg total) under the skin once a week. 4 mL 11 01/17/[address] (NexIUM) 20 mg capsule Take 20 mg by mouth daily Active multivitamin capsule Take 1 capsule by mouth daily Active vitamin b complex tablet Take 1 tablet by mouth daily Active cyanocobalamin (Vitamin B-12) 1,000 mcg/mL injection 07/31/2020 Active oxyCODONE-aceta minophen (PERCOCET) 5-325 mg per tablet TK 1 T PO QD PRN 07/13/2020 Active levothyroxine (SYNTHROID) 50 mcg tablet TK 1 T PO QD 05/26/2020 Activ e FLUoxetine 10 mg tablet/capsule Take 10 mg by mouth daily Active Active Problems Problem Noted Date Diagnosed Date Pharyngoesophageal dysphagia 07/23/2022 Assessment & Plan (07/26/2022 1:04 AM CDT): This may represent a motility disorder related to her connective tissue disease as her endoscopy previously was normal with no stricture. This could potentially be poor relaxation of the upper sphincter. It does not appear to directly relate to her gastric bypass procedure based upon her description. Recommend upper endoscopy with guidewire dilation. If no improvement then obtain esophageal motility study. Hypothyroidism (acquired) 02/02/2020 B12 nutritional deficiency 02/02/2020 Adjustment reaction with anxiety and depression 02/02/2020 Abnormality of gait and mobility 02/02/2020 Overlap syndrome 01/15/2018 Rheumatoid arthritis involvi ng multiple sites with positive rheumatoid factor 01/07/2018 Positive CASSANDRA (antinuclear antibody) 01/07/2018 Elevated serum creatinine 01/07/2018 High risk medication use 01/07/2018 Surgical History Surgery Date Site/Laterality Comments UPPER GASTROINTESTINAL ENDOSCOPY 11/10/2019 Normal COLONOSCOPY 06/23/2019 Non-bleeding internal hemorrhoids HYSTERECTOMY 11/15/1983 - 11/14/1984 GALLBLADDER SURGERY 11/15/2006 - 11/14/2007 GASTRIC BYPASS 11/15/2012 - 11/14/2013 KNEE ARTHROSCOPY 11/15/2014 - 11/14/2015 Medical History Medical History Date Comments RA (rheumatoid arthritis) (HCC) Lupus Sjogren's syndrome Social History Tobacco Use Types Packs/Day Years Used Date Smoking Tobacco: Never Smokeless Tobacco: Never Tobacco Cessation:Counseling Given: Not Answered Personal Safety Answer Date Recorded Getting School Help Needed Not on file 01/09 Comments Unknown Sex and Gender Information Value Date Recorded Sex Assigned at Not on file Legal Sex Female 12:24 AM JOB HAND Gender Identity Not on file Sexual Orientation Not on file Obstetrics History Last Filed Vital Signs Vital Sign Reading Time Taken Comments Blood Pressure 109/76 07/23/2022 3:17 PM CDT Pulse 92 07/23/2022 3:17 PM CDT Temperature 36.7 C (98 F) 01/07/2018 9:25 AM JOB HAND Respiratory Rate 16 08/08/2020 9:40 AM CDT Oxygen Saturation 94% 01/07/2018 9:25 AM JOB HAND Inhaled Oxygen Concentration - - Weight 110.2 kg (243 lb) 07/23/2022 3:17 PM CDT Height 172.7 cm (5' 8) 07/23/2022 3:17 PM CDT Body Mass Index 36.95 07/23/2022 3:17 PM CDT Plan of Treatment Health Maintenance Due Date Last Done Comments Breast Cancer Screening-Mammogram 1960 Depression Screening 1960 Fall Risk Assessment 1960 Osteoporosis Screening-Bone Density Scan 1960 Hepatitis B Screening 1976 Zoster Vaccine (1 of 2) 2008 Well Visit 65+ 2023 Covid-19 Vaccine (3 - 2023-2 5 season) 2024 03/03/2021, 02/11/2021 Influenza Vaccine (Season Ended) 2025 08/27/2022, 09/30/2021, 09/11/2020, Additional history exists Colon Cancer Screening-Colonoscopy 06/23/2029 06/23/2019 DTaP/Tdap/Td Vaccine (2 - Td or Tdap) 06/01/2033 06/01/2023 Colon Cancer Screening-CT Colonography Discontinued 06/23/2019 Colon Cancer Screening-DNA Stool Discontinued 06/23/20 Colon Cancer Screening-FIT Discontinued 06/23/2019 Colon Cancer Screening-Sigmoidoscopy Discontinued 06/23/2019 Pneumococcal vaccine 65+ Completed 05/14/2023, 06/16 Hepatitis C Screening Completed 09/06/2023, 018 Procedures Procedure Name Priority Date/Time Associated Diagnosis Comments HEPATITIS C ANTIBODY Routine 09/06/2023 12:36 PM CDT COLONOSCOPY Routine 06/23/2019 from Last 3 Months or Most Recently Relevant to Health Maintenance Results * Hepatitis C antibody Blood (09/06/2023 12:36 PM CDT) Hep C Ab Nonreactive Nonreactive [facility] Comment: Interpretive Data Nonreactive: Antibodies to HCV not detected. Does NOT exclude the possibility of recent exposure to HCV. Equivocal: Equivocal for HCV antibodies. Supplemental molecular testing will be automatically performed to determine infection status in accordance with current CDC screening recommendations. Reactive: Positive for HCV antibodies. This may represent current or past HCV infection. Supplemental molecular testing will be automatically performed to determine current infection status in accordance with current CDC screening recommendations. Interpretive data was last revised on 2020. Blood 09/06/2023 12:3 6 PM CDT 09/06/2023 12:36 PM CDT Cecelia Patiño MD LAB MICROBIOLOGY - GENERAL ORDER CARA Edited Result - Final [facility] [address] [place] [address] * Colonoscopy (06/23/2019) Anatomical Region Laterality Modality Other Historical Provider ENDOSCOPY PROCEDURES Jacki l Result from Last 3 Months or Most Recently Relevant to Health Maintenance Insurance [facility] FEDERAL MEDICARE [facility] CHOICE Care Teams Panel Flow Machine Operator Relationship Specialty Start Date End Date Ulises Pacheco MD [address] [place] [address] PCP - General Family Medicine 01/14/18
--- OUTSIDE RECORDS SUMMARY | 2025-04-19 11:03 | XMS_ITS | Referral Summary ---
Author Organization [facility] Address [address] [place] [address] Care Team Providers Care Chief Psychologist Name Role Phone Ulises Pacheco MD Primary Care Provider [phone] Allergies Active Allergy Reactions Criticality Noted Date [...] creatinine 01/07/2018 High risk medication use 01/07/2018 Social History Tobacco Use Types Packs/Day Years Used Date Smoking Tobacco: Never Smokeless Tobacco: Never Tobacco Cessation:Counseling Given: Not Answered Personal Safety Answer Date Recorded Getting School Help Needed Not on file 01/09 Comments Unknown Sex and Gender Information Value Date Recorded Sex Assigned at Not on file Legal Sex Female 12:24 AM WAGE HAND Gender Identity Not on file Sexual Orientation Not on file Last Filed Vital Signs Vital Sign Reading Time Taken Comments Blood Pressure 109/76 07/23/2022 3:17 PM CDT Pulse 92 07/23/2022 3:17 PM CDT Temperature 36.7 C (98 F) 01/07/2018 9:25 AM WAGE HAND Respiratory Rate 16 08/08/2020 9:40 AM CDT Oxygen Saturation 94% 01/07/2018 9:25 AM WAGE HAND Inhaled Oxygen Concentration - - Weight 110.2 kg (243 lb) 07/23/2022 3:17 PM CDT Height 172.7 cm (5' 8) 07/23/2022 3:17 PM CDT Body Mass Index 36.95 07/23/2022 3:17 PM CDT Plan of Treatment Not on file Procedures Procedure Name Priority Date/Time Associated Diagnosis Comments HEPATITIS C ANTIBODY Routine 09/06/2023 12:36 PM CDT COLONOSCOPY Routine 06/23/2019 from Last 3 Months or Most Recently Relevant to Health Maintenance Results * Hepatitis C antibody Blood (09/06/2023 12:36 PM CDT) Hep C Ab Nonreactive Nonreactive [facility] Comment: Interpretive Data Nonreactive: Antibodies to HCV [...] ORDER CARA Edited Result - Final [facility] [address] [place] [address] * Colonoscopy (06/23/2019) Anatomical Region Laterality Modality Other Randal Provider ENDOSCOPY PROCEDURES Jacki l Result from Last 3 Months or Most Recently Relevant to Health Maintenance Insurance [facility]IC[facility] Care Teams Chief Psychologist Relationship Specialty Start Date End Date Ulises Pacheco MD [address] [place] [address] PCP - General Family Medicine 01/14/18
--- OUTSIDE RECORDS SUMMARY | 2025-04-19 11:03 | XMS_ITS | Clinical Summary ---
Author Organization [facility] Address [address] [place] [address] Care Team Providers Care Web Weaver Name Role Phone Ulises Pacheco MD Primary Care Provider [phone] Ulises Pacheco MD Unavailable Source Comments [facility],non-owned Affiliates and Associated Physician Practices is amultiple site organization consisting of ambulatory clinics and hospital sitesin [place], [place] and [place]. This disclosure is being madepursuant to the Care Everywhere program and may not contain all information available regarding this patient. Last updated 18.[facility] Allergies No known active allergies Medications * Be aware that medications may not be up to date on this document. Alwaysverify current medications with the patient. Other Orance injections weekly for RA Active hydrocodone-yoel taminophen (NORCO) 5-325 MG tablet Take 1 Tab by mouth every 6 hours as needed for Pain 15 Tab 0 6 Active ibuprofen (MOTRIN) 600 MG tablet Take 1 Tab by mouth every 6 hours as needed for Pain 20 Tab 0 6 Active Additional Information Patient not taking.Reported on 07/21/2017 vitamin D, ergocalciferol, (DRISDOL) 25569 UNITS capsule Take 1 Cap by mouth once daily 2 7 Active methotrexate 2.5 MG tablet Take 6 Tabs by mouth Once weekly 2 7 Active FLUoxetine (PROZAC) 10 MG capsule Take 1 Cap by mouth once daily 1 7 Active Immunizations Immunization Administration Dates Next Due Covtevin Pfizer primary monoval ent 12+ yr 0.3mL Purple cap 03/03/2021,02/11/2021(Deferred: Other),02/11/2021 Social History Tobacco Use Types Packs/Day Years Used Date Smoking Tobacco: Never Smokeless Tobacco: Never Alcohol Use Standard Drinks/Week Comments No 0 (1 standard drink = 0.6 oz pur e alcohol) Comments Unknown Sex and Gender Information Value Date Recorded Sex Assigned at Not on file Legal Sex Female 7:10 PM EVIDENCE CUSTODIAN Gender Identity Not on file Sexual Orientation Not on file Last Filed Vital Signs Vital Sign Reading Time Taken Comments Blood Pressure 123/67 11/20/2015 11:01 PM EVIDENCE CUSTODIAN Pulse 79 07/21/2017 10:40 AM CDT Temperature 36.2 C (97.2 F) 11/20/2015 11:01 PM EVIDENCE CUSTODIAN Respiratory Rate 18 11/20/2015 11:01 PM EVIDENCE CUSTODIAN Oxygen Saturation 97% 07/21/2017 10:40 AM CDT Inhaled Oxygen Concentration - - Weight 104.3 kg (230 lb) 07/21/2017 10:40 AM CDT Height 170.2 cm (5' 7) 07/21/2017 10:40 AM CDT Body Mass Index 36.02 07/21/2017 10:40 AM CDT Plan of Treatment Health Maintenance Due Date Last Done Comments BONE DENSITY TESTING 1960 COLOGUARD (AGES 45-75) - COL ON CA SCREENING 1958 COLON MONITORING 1958 COLONOSCOPY - COLON CA SCREENING 1958 CT COLONOGRAPHY - COLON CA SCREENING 1960 Colorectal Cancer Screening 1958 FIT - COLON CA SCREENING 1958 FLEX SIG - COLON CA SCREENING 1958 LIPID TESTING 1958 MAMMOGRAM 1958 HEPATITIS C SCREENING 03/25/1976 DTAP/TDAP/TD VACCINES (1 - Tdap) 1977 PNEUMOCOCCAL VACCINE 50+ (1 of 1 - PCV) 2008 ZOSTER VACCINE (1 of 2) 2008 COVID-19 VACCINE (2023-2 5 season) 2024 03/03/2021, 02/11/2021 DEPRESSION SCREENING 11/15/2024 INFLUENZA VACCINE (Season Ended) 2025 09/11/2020 Respiratory Syncytial Virus (RSV) Vaccine Pt: or over 60 yrs (1 - 1-dose 75+ series) 2033 HEPATITIS B VACCINE Aged Out No longe r eligible based on patient's age to complete this topic HIB VACCINE Aged Out No longer eligi ble based on patient's age to complete this topic HPV VACCINE Aged Out No longer eligi ble based on patient's age to complete this topic MENINGOCOCCAL (Group B) VACCINE SHARED DECISION-MAKING Aged Out No longer eligible based on patient's age to complete this topic MENINGOCOCCAL GROUPS A/C/Y/W VACCINE Aged Out No longer eligible b ased on patient's age to complete this topic Insurance ANTH ANTH TP THIRD GREEN [employer] LIABILITY [employer] Liability ANTHEM Care Teams Web Weaver Relationship Specialty Start Date End Date Ulises Pacheco MD [address] [place] [address] PCP - General 09/24/20 Ulises Pacheco MD [address] [place] [address] Family Medicine 09/24/20
== END 2025-04-19 10:07 | disposition home or self-care (01) ==
PROVIDERS: PCP Family Medicine; Visit Provider Family Medicine
DX: L02.03 Carbuncle of face (principal)
CPT/HCPCS: 87070; 87075; 87181; 87205

== ENCOUNTER 2025-09-20 13:06 | Outpatient (CLI) | payer MEDICARE, BC, SELFPAY ==
--- OUTSIDE RECORDS SUMMARY | 2005-08-21 05:00 | XMS_ITS | Continuity of Care Document ---
Author Organization [facility] Address [address] [place] [address] Exec utive [facility] [address] [place] [address] Phone Care Team Providers Care School Cafeteria Head Cook Name Role Phone Jeanette Cardoso Unavailable Unavailable Advance Directives Directive Yes / No Effective Date File Name No Information Encounters Encounter Description Practice Location Reason(s) For Visit Diagnoses Date Provider Providers Copied on Encounter [facility], [address], [place], [place], [id number], [place] tel:[phone] [facility] No Information 7-200 5 Janae Reid. [address] , [address], [place], [address], [place]. tel:[phone] Family History Family Member Type Diagnosis Age At Onset No Information Payers Payer name Insurance type Covered democrat ID Authoriza tion(s) No Information Social History Type Description Quantity Date Captured Comments Sex Female Smoking Status No Information Chief Complaint And Reason For Visit No Information Reason For Referral Reason For Referral No Information History Of Present Illness Encounter Date Complaint History Of Prese nt Illness No Information Functional Status Date Functional Assessmen t No Information Instructions Date Instruction Additional Infor mation No Information Assessments Type Assessment Date No Information Patient Care Teams Name Effective Dates (start - stop) Status Members No Information
--- OUTSIDE RECORDS SUMMARY | 2015-10-31 03:30 | XMS_ITS | Continuity of Care Document ---
Author Organization [facility] Address [address] [place] [address] Phone Care Team Providers Care Senior Developer Name Role Phone Edvin Strong MD Unavailable Unavailable Allergies, Adverse Reactions, Alerts Substance Reaction Status Criticality No Known Allergies Active No Inform ation Medications Medication Instructions Dosage Effective Dates (start - stop) Status Comments ORENCIA (unknown strength) Not Available - Active Procedures Procedure Date RADEX KNE 3 VIEWS OFFICE/OUTPATIENT VISIT NEW Advance Directives Directive Yes / No Effective Date File Name No Information Encounters Encounter Description Practice Location Reason(s) For Visit Diagnoses Date Provider Providers Copied on Encounter OFFICE/OUTPA TIENT VISIT NEW [facility], [address], [place], [address], [place] tel:[phone] [facility] Right knee painRight wrist painBody mass index (BMI) 36.0-36.9, adultNumbness and tinglingParesthes ia of skinPrimary osteoarthritis of right kneeGanglion cyst 7-201 5 Ligia Pardo. [address], [place], [place], [id number] . tel:[phone] Family History Family Member Type Diagnosis Age At Onset Mother Problem (finding) Heart disease Payers Payer name Insurance type Covered constitution party ID Authorneemaa tiedson(s) [facility] Federal E2 OT [id number] Social History Type Description Quantity Date Captured Comments Alcohol Use Details No Caffeine Use Details Unknown Tobacco Use Status Never smoked tobacco 2014 Smoking Status Never smoker Non-Smoking Tobacco Use Details : No Details Available : No Details Available Sex Female Vital Signs Date / Time: Height Weight BMI Pulse Rate Blood Pressure Temperature Respiratory Rate Body Surface Area Head Circumference Head Circ. Percentile Wt./Nehemias. Percentile BMI percentile Pulse Ox Inhaled Ox 10:34 AM 68.00 in 108.862 kg (240.00 lbs) 36.4 9 kg/m caro (2) Chief Complaint And Reason For Visit No Information Reason For Referral Reason For Referral No Information Plan Of Treatment Date Type Action Status Referral Ordered: Refer to TONYA WOODS. (related to Body mass index (BMI) 36.0-36.9, adult) ordered Referral Ordered: RADEX WRST COMPL MINIMUM 3 VIEWS RT wrist ordered Referral Ordered: RADEX KNE 3 VIEWS RT knee ordered History Of Present Illness Encounter Date Complaint History Of Prese nt Illness No Information Functional Status Date Functional Assessmen t No Information Instructions Date Instruction Additional Infor mation Home exercise program. Related t o Right knee pain Dietary needs education Related to Body mass index (BMI) 36.0-36.9, adult Discussed treatment options Rela gerardo to Right knee pain Assessments Type Assessment Date assessment Right knee pain assessment Right wrist pain assessment Body mass index (BMI) 36.0-36.9, adult assessment Numbness and tingling 5 assessment Paresthesia of skin assessment Primary osteoarthritis of right knee assessment Ganglion cyst Patient Care Teams Name Effective Dates (start - stop) Status Members No Information
--- OUTSIDE RECORDS SUMMARY | 2025-02-27 09:24 | XMS_ITS | Continuity of Care Document ---
Author Organization [employer] [place] Address [address] [place] [address] [address] [place] [address] Phone Care Team Providers Care Internal Recruiter Name Role Phone Cristel PT, DPT, Opal Unavailable Unavailab le Procedures Procedure Date Therapeutic Activities Neuromuscular Re-Ed Doc neg elder mal no plan PRES/ABSN URINE INCON ASSESS PT Evaluation High Complexity Therapeutic Activities Neuromuscular Re-Ed Doc neg elder mal no plan PRES/ABSN URINE INCON ASSESS Identified as not an unhealthy alcohol u ser Not identified as unhealthy alcohol via screening OT Evaluation Low Complexity Therapeutic Exercise Orthotic Mgmt and Training WHO w/o joints CF Identified as not an unhealthy alcohol u ser Not identified as unhealthy alcohol via screening Progress Note THERAPEUTIC EXERCISES HOT/COLD PACK ELECTRIC STIMULATION UNA THERAPEUTIC EXERCISES MANUAL THERAPY FUNC ACTIVITY HOT/COLD PACK ELECTRIC STIMULATION UNA THERAPEUTIC EXERCISES MANUAL THERAPY FUNC ACTIVITY HOT/COLD PACK ELECTRIC STIMULATION UNA THERAPEUTIC EXERCISES FUNC ACTIVITY HOT/COLD PACK ELECTRIC STIMULATION UNATT THERAPEUTIC EXERCISES MANUAL THERAPY FUNC ACTIVITY HOT/COLD PACK ELECTRIC STIMULATION UNATT THERAPEUTIC EXERCISES MANUAL THERAPY HOT/COLD PACK ELECTRIC STIMULATION UNATT THERAPEUTIC EXERCISES HOT/COLD PACK ELECTRIC STIMULATION UNATT THERAPEUTIC EXERCISES MANUAL THERAPY HOT/COLD PACK ELECTRIC STIMULATION UNATT THERAPEUTIC EXERCISES MANUAL THERAPY HOT/COLD PACK ELECTRIC STIMULATION UNATT PT RE-EVALUATION THERAPEUTIC EXERCISES HOT/COLD PACK ELECTRIC STIMULATION UNA PT EVALUATION THERAPEUTIC EXERCISES MANUAL THERAPY FUNC ACTIVITY HOT/COLD PACK ELECTRIC STIMULATION UNA Progress Note THERAPEUTIC EXERCISES HOT/COLD PACK ELECTRIC STIMULATION UNA THERAPEUTIC EXERCISES HOT/COLD PACK ELECTRIC STIMULATION UNA THERAPEUTIC EXERCISES MANUAL THERAPY HOT/COLD PACK ELECTRIC STIMULATION UNA THERAPEUTIC EXERCISES MANUAL THERAPY THERAPEUTIC EXERCISES MANUAL THERAPY HOT/COLD PACK ELECTRIC STIMULATION UNATT THERAPEUTIC EXERCISES MANUAL THERAPY HOT/COLD PACK ELECTRIC STIMULATION UNATT THERAPEUTIC EXERCISES MANUAL THERAPY HOT/COLD PACK ELECTRIC STIMULATION UNATT THERAPEUTIC EXERCISES MANUAL THERAPY HOT/COLD PACK ELECTRIC STIMULATION PT EVALUATION THERAPEUTIC EXERCISES MANUAL THERAPY HOT/COLD PACK ELECTRIC STIMULATION UNATT Advance Directives Directive Yes / No Effective Date File Name No Information Encounters Encounter Description Practice Location Reason(s) For Visit Diagnoses Date Provider Providers Copied on Encounter [facility] [address] [address], [place], [place], [id number], tel:[phone] [place] No Information 5 Cristel Opal. . [facility] [address] [address], [place], [place], [id number], tel:[phone] [place] No Information 5 Cristel Opal. . Referring Provider: Kyler Go, [address] [facility] [address], [place], [address]. tel:[phone] [facility] [address] [place] [address], [place], [place], [id number], tel:[phone] [place] A No Information 5 Cristel Opal. . Referring Provider: Kyler Go, [address] [facility] [address], [place], [address]. tel:[phone] [facility] [address] [place] [address], [place], [place], [id number], tel:[phone] [place] No Information 0 4 Mayda Vargas. [address] [place] [address], [address], [place], [address], [place]. tel:[phone] Referring Provider: Wyatt Regan, [address] [facility] [address], [place], [address]. tel:[phone], [place], [place], [id number], tel:[phone] [place] No Information 0-201 6 Yaz Sosa. [address] [place] [address], [address], [place], [facility], . tel:[phone] Referring Provider: Marleny Cheung [address], [place], [address]. tel:[phone] [place] [address], [id number], tel:[phone] [place] No Information Eric-0 6-201 6 Guthrie Tao. [address] [place] [address], [facility] [address], [place], [place], [facility], . tel:[phone] Referring Provider: Marleny Cheung [address], [place], [address]. tel:[phone], [id number], tel:[phone] [place] No Information Apr-0 3-201 6 Mikesch Sheila. [address] [place] [address], [facility] [address], [place], [facility], . tel:[phone] Referring Provider: Marleny Cheung [address], [place], [address]. tel:[phone], [id number], tel:[phone] [place] No Information March-3 1-201 6 Guthrie Tao. [address] [place] [address], [facility] [address], [place], [facility], . tel:[phone] Referring Provider: Marleny Cheung [address], [place], [address]. tel:[phone], [id number], tel:[phone] [place] No Information March-2 6-201 6 Mikesch Sheila. [address] [place] [address], [facility] [address], [place], [facility], . tel:[phone] Referring Provider: Marleny [address], [place], [address]. tel:[phone] [address], [place], [place], [id number], tel:[phone] [place] No Information May-2 3-201 6 Mikesch Sheila. [address] [place] [address], [address], [place], [facility], . tel:[phone] Referring Provider: Marleny Cheungty [address], [place], [address]. tel:[phone] [address], [place], [place], [id number], tel:[phone] David No Information May-2 0-201 6 Mikesch Sheila. [address] [place] [address], [address], [place], [facility], . tel:[phone] Referring Provider: Marleny Cheung [address], [place], [place], [facility]. tel:[phone] [address], [place], [id number], tel:[phone] [place] No Information March-1 6-201 6 Mikesch Sheila. [address] [place] [address], [address], [place], [facility], . tel:[phone] Referring Provider: Marleny Cheung[address], [place], [place], [facility]. tel:[phone] [address], [place], [id number], tel:[phone] [place] No Information May-0 9-201 6 Mikesch Sheila. [address] [place] [address], [address], [place], [facility], . tel:[phone] Referring Provider: Marleny Cheung [address], [place], [address]. tel:[phone] [facility] [address] [place] [address] [address], [place], [place], [id number], tel:[phone] David No Information May-0 6-201 6 Mikesch Sheila. [address] [place] [address], [address], [place], [facility], . tel:[phone] Referring Provider: Marleny Cheung [address], [place], [address]. tel:[phone] [facility] [address] [place] [address] [address], [place], [place], [id number], [place] tel:[phone] David Stiffness of right knee, not elsewhere classifiedPain in right kneeEffusion, right kneeAftercare following joint replacement surgeryPresence of right artificial knee joint Apr-2 9-201 6 Mikesch Sheila. [address] [place] [address], [address], [place], [facility], [place]. tel:[phone] Referring Provider: Claude Munoz, [facility] [address], [place], [address]. tel:[phone] [facility] [address] [place] [address], [place], [place], [id number], tel:[phone] David No Information Mar-1 0-201 6 Mikesch Sheila. [address] [place] [address], [address], [place], [facility], [place]. tel:[phone] Referring Provider: Marleny Cheung [address], [place], [address]. tel:[phone], [place], [place], [id number], tel:[phone] [place] No Information Mar-0 7-201 6 Mikesch Sheila. [address] [place] [address], [address], [place], [facility], . tel:[phone] Referring Provider: Marleny Cheung [address], [place], [address]. tel:[phone] [place] [address], [id number], tel:[phone] David No Information 6 Mikesch Sheila. [address] [place] [address], [address], [place], [facility], . tel: [phone] Referring Provider: Marleny Cheung [address], [place], [address]. tel:[phone] [place] [address], [id number], tel:[phone] [place] No Information 6 Mikesch Sheila. [address] [place] [address], [address], [place], [facility], . tel: [phone] Referring Provider: Marleny Cheung [facility] [address], [place], [address]. tel:[phone] [place] [address], [id number], tel:[phone] David No Information 6 Mikesch Sheila. [address] [place] [address], [address], [place], [facility], [place]. tel: [phone] Referring Provider: Marleny Cheung [address], [place], [address]. tel:[phone], [place], [id number], [place] tel:[phone] David No Information 6 Mikesch Sheila. [address] [place] [address], [address], [place], [facility], [place]. tel: [phone] Referring Provider: Marleny Cheung [address], [place], [address]. tel:[phone], [id number], tel:[phone] David No Information 6 Yaz Sosa. [address] [place] [address], [address] [place] [address], [facility], . tel:[phone] Referring Provider: Marleny Cheung [address], [place], [place], [facility]. tel:[phone], [id number], tel:[phone] David No Information 6 Yaz Sosa. [address] [place] [address], [address], [facility], . tel:[phone] Referring Provider: Marleny Cheung [facility] [address], [place], [facility]. tel:[phone], [id number], tel:[phone] David Low back painCervicalgiaMuscl e weakness (generalized)Oth symptoms and signs involving the dgstv sys and abdomenUnspecified abnormalities of gait and mobility 6 Yaz Sosa. [address] [place] [address], [address], [facility], . tel:[phone] Referring Provider: Marleny Cheung [address], [place], [facility]. tel:[phone] Family History Family Member Type Diagnosis Age At Onset No Information Payers Payer name Insurance type Covered green party ID Authoriza tion(s) [facility] Blanka NORIEGA [id number] Medicare [place] [id number] [facility] Blanka BL [id number] VL CY 2015 Social History Type Description Quantity Date Captured [...]
--- NOTE | ~2025-09-20 | DEXA_ITS ---
Bone Density Report Name: MARI CORDERO Age: 65 Sex: Female Ethnicity: White Date of : 1960 Indication: postmenopausal osteoporosis; prior fracture; hysterectomy; rheumatoid arthritis; Referring Provider: ADAIR WALLER Study: Bone densitometry was performed. Exam Date: September 20, 2025 Accession number: [id number] Bone Density: Region BMD T-score Z-score Classification AP Spine(L1-L4) 0.730 -2.9 -0.9 Osteoporosis Femoral Neck (Left) 0.602 -2.2 -0.6 Osteopenia Total Hip (Left) 0.613 -2.7 -1.3 Osteoporosis Femoral Neck (Right) 0.594 -2.3 -0.6 Osteopenia Total Hip (Right) 0.677 -2.2 -0.8 Osteopenia Total Hip Mean 0.645 -2.5 -1.1 Osteopenia World Health Organization criteria for BMD impression classify patients as: Normal (T-score at or above -1.0), Osteopenia (T-score between -1.0 and -2.5), or Osteoporosis (T-score at or below -2.5). 10-year Fracture Risk: FRAX not reported because: Some T-score for Spine Total or Hip Total or Femoral Neck at or below -2.5 Previous Exams: Region Exam Age BMD T-score BMD Change BMD Change Date g/cm2 vs Baseline vs Previous AP Spine (L1-L4) 09/20/2025 65 0.730 -2.9 -0.093 (-11.3% 0.036 (5.2%)* 01/19/2023 62 0.694 -3.2 -0.129 (-15.6% -0.129 (-15.6% 06/09/2019 59 0.823 -2.0 Total Hip(Left) 09/20/2025 65 0.613 -2.7 -0.124 (-16.8% -0.080 (-11.6% 01/19/2023 62 0.693 -2.0 -0.044 (-5.9%) -0.044 (-5.9%) 06/09/2019 59 0.736 -1.7 Total Hip(Right) 09/20/2025 65 0.677 -2.2 -0.063 (-8.5%) -0.035 (-4.9%) 01/19/2023 62 0.712 -1.9 -0.028 (-3.8%) -0.028 (-3.8%) 06/09/2019 59 0.740 -1.7 *Denotes significance at 95% confidence level, LSC for AP Spine = 0.022 g/cm2, LSC for Total Hip = 0.027 g/cm2 # Denotes dissimilar scan types or analysis methods Clinical Information Provided by Patient: Has had a low trauma fracture Has rheumatoid arthritis Has used the following medications: Vitamin D Has the following medical conditions: Hysterectomy Patient maximum height was 67 Menopause Age: 23 No regular weight bearing exercise Drinks caffeinated beverages Onset of menses at age 10 Number of children 1 Impression: The patient has established osteoporosis, based on the Total Spine T-score and the existence of a prior fracture. The patient has risk factors, including: previous fracture. The BMD for the Total Hip(Left) decreased, changing by -11.6% since the last DXA exam. The BMD for the Total Hip(Right) decreased, changing by -4.9% since the last DXA exam. Discussion: HIGH RISK OF FRACTURE. BONE DENSITY IS UNDESIRABLY LOW AT ONE OR MORE SKELETAL SITES, CONSISTENT WITH POSTMENOPAUSAL OSTEOPOROSIS. This patient's lowest T-score, in a patient who has previously fractured, meets the World Health Organization's (WHO) criteria for severe osteoporosis. In untreated patients, the risk of osteoporotic fracture increases approximately two-fold for each 1.0 SD decrease in T-score. Low bone density is not the only risk factor for fracture; also consider factors such as patient's age, frailty or poor health, risk of falling, risk of injury, previous osteoporotic fracture, family history of osteoporosis, cigarette smoking, low body weight, etc. Not everyone with low bone mineral density has osteoporosis; osteomalacia and other metabolic bone disorders should also be considered. Patients who have osteoporosis should be evaluated for specific diseases and conditions (secondary causes) that may cause or contribute to bone loss. The [place] [employer]ocr[employer] (AACE) and National Osteoporosis Foundation (NOF) recommend pharmacologic intervention for all postmenopausal women whose T-score is in this range. The patient should follow a healthful lifestyle (good nutrition with adequate calcium and vitamin D, and appropriate weight-bearing exercise). Follow-Up: Consider a repeat BMD and Vertebral Fracture Assessment (VFA) exam in 2 years or sooner if medically necessary, to reassess this patient's status. Reported by: CHARI on 09/20/2025 2:09:00 PM. Reviewed, dictated and finalized at location A.
--- NOTE | ~2025-09-20 | MM_ITS ---
EXAMINATION: MM screening [facility] BI w cheryle HISTORY: Screening TECHNIQUE: Craniocaudal and mediolateral oblique 3-D tomosynthesis images were obtained and synthetic 2-D images were generated. CAD analysis was submitted and interpreted. COMPARISON: Comparison to multiple prior studies sequentially, with oldest reviewed study dated 09/17/2020. BREAST PARENCHYMAL COMPOSITION: Not dense: There are scattered areas of fibroglandular density. FINDINGS: There is no evidence of suspicious mass, calcification, or architectural distortion to suggest malignancy in either breast. There has been no suspicious interval change. IMPRESSION: 1. No mammographic evidence of malignancy. 2. Recommend routine screening mammography in one year. BI-RADS Category 1: Negative Reviewed, dictated and finalized at location O. [employer]
--- OUTSIDE RECORDS SUMMARY | 2025-09-20 19:56 | XMS_ITS | Clinical Summary ---
Author Organization [facility] Address [address] [place] [address] Care Team Providers Care Market Research Specialist Name Role Phone Ulises Pacheco MD Primary Care Provider [phone] Ulises Pacheco MD Unavailable Source Comments [facility],non-owned Affiliates and Associated Physician Practices is amultiple site organization consisting of ambulatory clinics and hospital sitesin [place], [place], [place] and [place]. This disclosure is being madepursuant to the Care Everywhere program and may not contain all information available regarding this patient. Last updated 18.[facility] Allergies No known active allergies Medications * [...] taking.Reported on 07/21/2017 vitamin D, ergocalciferol, (DRISDOL) 00229 UNITS capsule Take 1 Cap by mouth once daily 2 7 Active methotrexate 2.5 MG tablet Take 6 Tabs by mouth Once weekly 2 7 Active FLUoxetine (PROZAC) 10 MG capsule Take 1 Cap by mouth once daily 1 7 Active Immunizations Immunization Administration Dates Next Due Paola Sepulveda primary monoval ent 12+ yr 0.3mL Purple cap 03/03/2021,02/11/2021(Deferred: Other),02/11/2021 Social History Tobacco Use Types Packs/Day Years Used Date Smoking Tobacco: Never Smokeless Tobacco: Never Alcohol Use Standard Drinks/Week Comments No 0 (1 standard drink = 0.6 oz pur e alcohol) Comments Unknown Sex and Gender Information Value Date Recorded Sex Assigned at Not on file Legal Sex Female 7:10 PM PUNCH PRESS OPERATOR Gender Identity Not on file Sexual Orientation Not on file Last Filed Vital Signs Vital Sign Reading Time Taken Comments Blood Pressure 123/67 11/20/2015 11:01 PM PUNCH PRESS OPERATOR Pulse 79 07/21/2017 10:40 AM CDT Temperature 36.2 C (97.2 F) 11/20/2015 11:01 PM PUNCH PRESS OPERATOR Respiratory Rate 18 11/20/2015 11:01 PM PUNCH PRESS OPERATOR Oxygen Saturation 97% 07/21/2017 10:40 AM CDT [...] 2008 ZOSTER VACCINE (1 of 2) 2008 DEPRESSION SCREENING 11/15/2024 COVID-19 VACCINE (3 2024-2 6 season) 2025 03/03/2021, 02/11/2021 INFLUENZA VACCINE (#1) 2025 09/11/2020 Respiratory Syncytial Virus (RSV) Vaccine [...] this topic Insurance ANTH ANTH TP THIRD [employer] PART[employer] LIABILITY [employer] Liability ANTHEM Care Teams Market Research Specialist Relationship Specialty Start Date End Date Ulises Pacheco MD [address] [place] [address] PCP - General 09/24/20 Ulises Pacheco MD [address] [place] [address] Family Medicine 09/24/20
--- OUTSIDE RECORDS SUMMARY | 2025-09-20 19:57 | XMS_ITS | Clinical Summary ---
Author Organization [facility] Address [address] [place] [address] Care Team Providers Care Registered Radiographer Name Role Phone Ulises Pacheco MD Primary Care Provider [phone] Allergies Active Allergy Reactions Criticality Noted Date [...] Medical History Date Comments RA (rheumatoid arthritis) Lupus Sjogren's syndrome Social History Tobacco Use Types Packs/Day Years Used Date Smoking Tobacco: Never Smokeless Tobacco: Never Tobacco Cessation:Counseling Given: Not Answered Personal Safety Answer Date Recorded Getting School Help Needed Not on file 01/09 Comments Unknown Sex and Gender Information Value Date Recorded Sex Assigned at Not on file Legal Sex Female 12:24 AM GLASS LATHE OPERATOR Gender Identity Not on file Sexual Orientation Not on file Last Filed Vital Signs Vital Sign Reading Time Taken Comments Blood Pressure 109/76 07/23/2022 3:17 PM CDT Pulse 92 07/23/2022 3:17 PM CDT Temperature 36.7 C (98 F) 01/07/2018 9:25 AM GLASS LATHE OPERATOR Respiratory Rate 16 08/08/2020 9:40 AM CDT Oxygen Saturation 94% 01/07/2018 9:25 AM GLASS LATHE OPERATOR Inhaled Oxygen Concentration - - Weight 110.2 [...] 1976 Zoster Vaccine (1 of 2) 2008 Covid-19 Vaccine (3 - Pfizer risk series) 03/31/2021 03/03/2021, 02/11/2021 Well Visit 65+ 2023 Influenza Vaccine (#1) 2025 2, 09/30/2021, 09/11/2020, Additional history exists Colon Cancer [...] CDT) Hep C Ab Nonreactive Nonreactive [facility] Comment: Interpretive Data Nonreactive: Antibodies to HCV [...] ORDER CARA Edited Result - Final [facility] [address] Department [place] [address] * Colonoscopy (06/23/2019) Anatomical Region Laterality Modality Other Historical Provider ENDOSCOPY PROCEDURES Jacki l Result from Last 3 Months or Most Recently Relevant to Health Maintenance Insurance [facility] FEDERAL MEDICARE [facility] CHOICE Care Teams Registered Radiographer Relationship Specialty Start Date End Date Ulises Pacheco MD [address] [place] [address] PCP - General Family Medicine 01/14/18
--- OUTSIDE RECORDS SUMMARY | 2025-09-20 19:57 | XMS_ITS | Patient Health Record ---
Author Organization [facility] josé miguel Address [address] [place] [address] Care Team Providers Care Python Architect Name Role Phone Hernandez Santana MD Primary Care Provider Cecelia De La Paz Unavailable [phone] Hoang Pacheco MD Unavailable Unavailable Allergies Allergen [...] dsDNA Reviewed date:10/17/2024 04:14:38 PM Interpretation: Performing Lab:[facility] , [address] [facility] [address] Notes/Report: CASSANDRA, Qual Positive 1:160 Interpretive Data [...] last revised on 2020. Testing performed by: [facility], [address] [place]., [address] CASSANDRA, Fili 1:160 Testing performed by: [facility], [address] [place]., [address] CASSANDRA Pattern 1 Speckled Testing performed by: [facility], [address] [facility], [place]., [address] Anti-CCP (Cyclic Citrullinat ed Peptide Ab) Reviewed date:10/17/2024 01:42:56 PM Interpretation: Performing Lab:[facility] , [address] [place] [address]. [facility] [address] Notes/Report: CCP Ab >300.0 <=2.9 units/mL Interpretive data Negative: <3 units/mL Positive: > or equal to 3 units/mL Current interpretive data was last revised on 2017. C Reactive Protein Reviewed date:10/16/2024 04:42:55 PM Interpretation: Performing Lab:[facility] , [address] [place] [address]. [facility] [address] Notes/Report: C-Reactive Protein <3.0 <=10.0 mg/L CBC w auto diff Reviewed date:10/16/2024 04:31:41 PM Interpretation: Performing Lab:[facility] , [address] [place] [address]. [facility] [address] Notes/Report: WBC 4.4 3.8-9.9 K/cumm Hgb 11.5 11.9-15.5 g/dL Hct 37.6 35.6-45.5 % Platelet Ct 236 150-400 K/cumm MPV 11.7 9.1-12.3 fL RBC 4.28 3.90-5.20 M/cumm MCV 87.9 81.3-96.4 fL MCH 26.9 27.1-33.3 pg MCHC 30.6 32.3-35.7 g/dL RDW CV 14.3 11.1-14.9 % RDW SD 46.3 35.7-48.1 fL NRBC Abs Auto 0.00 0.00-0.01 K/cumm Complement C3 Reviewed date:10/16/2024 04:42:55 PM Interpretation: Performing Lab:[facility] , [address] [place] [address]. [facility] [address] Notes/Report: Complement, C3 126 90-180 mg/dL Complement C4 Reviewed date:10/16/2024 04:42:55 PM Interpretation: Performing Lab:[facility] , [address] [place] [address]. [place] [address] Notes/Report: Complement, C4 27 10-40 mg/dL Comprehensive metabolic pane l (CMP) Reviewed date:10/16/2024 04:42:55 PM Interpretation: Performing Lab:[facility] , [address] [place] [address]. [place] [address] Notes/Report: Sodium 140 135-145 mmol/L Plasma Potassium [...] Kinase Reviewed date:10/16/2024 04:42:55 PM Interpretation: Performing Lab:[facility] , [address] [place] [address]. [place] [address] Notes/Report: Total CK 46 30-200 Units/L QTB Gold Reviewed date:10/18/2024 04:55:28 PM Interpretation: Performing Lab:[facility] , [address] [place] [address]. [place] [address] Notes/Report: QuantiFERON TB Gold Negative Negative No [...] Mitogen-Nil 6.84 NIL 0.00 Test Performed by: [place] [address] Roving Changer: Moustapha Wade Ph.D.; CLIA# [id number] Rheumatoid Factor Reviewed date:10/16/2024 04:42:55 PM Interpretation: Performing Lab:[facility] , [address] [place] [address]. [facility] [address] Notes/Report: RF, Fili 42 <=15 IUnits/mL Sed Rate Reviewed date:10/16/2024 04:57:12 PM Interpretation: Performing Lab:[facility] , [address] [place] [address]. [facility] [address] Notes/Report: ESR 20 1-30 mm/hr Differential Automated Reviewed date:10/16/2024 04:31:41 PM Interpretation: Performing Lab:[facility] , [address] [place] [address]. [facility] [address] Notes/Report: Neut Abs 2.3 1.5-6.5 K/cumm ImmGran Abs 0.0 0.0-0.1 K/cumm Lymphocyte Abs 1.4 0.8-3.3 K/cumm Durham Abs 0.4 0.2-0.8 K/cumm Eos Abs 0.2 [...] Interpretive Data was last revised on 2018. Durham Pct 9.5 Interpretive Data Percent cell count [...] DNA Reviewed date:10/19/2024 12:12:22 PM Interpretation: Performing Lab:[facility] , [address] [place] [address] Notes/Report: Double Stranded DNA, Fili <1.0 <=4.0 IUnits/mL Interpretive Data Negative: < or = 4 IUnits/mL Indeterminate: 5 - 9 IUnits/mL Positive: > or = 10 IUnits/mL Current interpretive data was last revised on 2017. JENNIFFER Screen Reviewed date:10/19/2024 12:12:11 PM Interpretation:Lab Result Generalized Performing Lab:[facility] , [address] [facility]. [place] [address] Notes/Report: JENNIFFER Screen Negative Negative Interpretive Data Positive Screens will be reflexed to specific testing for Antibodies against the following antigens: Antonia-1 Ab, VICE PRESIDENT MEDIA RELATIONS Ab, Scl-70 Ab, Martell Ab, SS-A/Ro Ab, and SS-B/La Ab. Further testing for dsDNA, Centromere, or Ribosomal P antibodies is suggested in patient with a positive screen and negative specific antibodies. Current interpretive data was last revised on 2023. eGFR Reviewed date:10/16/2024 04:42:55 PM Interpretation: Performing Lab:[facility] , [address] [facility] [place] [address] Notes/Report: eGFR 57 >=60 mL/min/1.73 m2 Interpretive [...] Notes Start Date End Date Status oxyCODONE-Acetaminophen 5-325 MG 1/2 tablet prn Oral; Duration: 30 Days Active Esomeprazole Magnesium 40 MG TAKE 1 CAPS ULE BY MOUTH DAILY Oral; Duration: 90 Days Active Levothyroxine Sodium 50 MCG TAKE 1 TABLE T BY MOUTH DAILY Oral; Duration: 90 Days Active tiZANidine HCl 2 MG TAKE 1 TO 2 TABLETS BY MOUTH AT BEDTIME NEEDED Oral; Duration: 30 days Active Vitamin D (Ergocalciferol) 48960 UNIT take 1 capsule (50,000 unit) by oral route once weekly Oral 0.799844139301208 Active FLUoxetine HCl 20 MG 1 capsule Orally On ce a day; Duration: 30 day(s) Active predniSONE 5 MG 1 Oral every other d ay; Duration: 90 day(s) Active Vitamin B12 1000 MCG 1 tablet Orally Onc e a day; Duration: 30 day(s) Active Problems Problem Type SNOMED Code ICD Code Onset Dates Problem Status W/U Status Risk Notes Problem Rheumatoid arthritis (09441401) 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) Active confirmed Problem Rheumatoid arthritis (03367045) Rheumatoid arthritis without rheumatoid factor, unspecified site (M06.00) Active confirmed Problem Lupus (898169391) Lupus (M32.9) Active confirme d Problem Rheumatoid arthritis (62272190) Rheumatoid arthritis, unspecified (M06.9) Active confirmed Problem Systemic lupus erythematosus (08468583) Systemic lupus erythematosus, unspecified (M32.9) Active confirmed Vital Signs Heart Rate 94 /min 02/06/2025 Temperature 98.2 degrees Fahrenheit 02/06/2025 Blood pressure diastolic 80 mm Hg 02/06/2025 Oximetry 98 % 02/06/2025 Height-cm 170.18 cm 02/06/2025 Weight-kg 105.67 kg 10/10/2024 Height 67 in 02/06/2025 Blood pressure systolic 120 mm Hg 02/06/2025 Weight 233.0 lbs 10/10/2024 BMI 36.49 kg/m2 10/10/2024 Encounters Encounter Location Date Provider Diagnosis [facility] [address] [place] [address] 10/10/2024 Cecelia Patiño Other rheumatoid arthritis with rheumatoid factor of multiple sites M05.89 ; Lupus M32.9 ; High risk medication use Z79.899 and Tooth infection K04.7 [facility] [address] [place] [address] 02/06/2025 Cecelia Patiño Other rheumatoid arthritis with rheumatoid factor of multiple sites M05.89 ; Lupus M32.9 ; High risk medication use Z79.899 and Tooth infection K04.7 [facility] [address] [place] [address] 10/04/2024 [facility] [address] [place] [address] 10/08/2024 [facility] [address] [place] [address] [facility] [address] [place] [address] [facility] [address] [place] [address] 2025 Cecelia [facility] [address] [place] [address] 04/20/2025 [facility] [address] [place] [address] 05/02/2025 [facility] [address] [place] [address] 04/20/2025 Cecelia Patiño Assessments Encounter Date Diagnosis (ICD [...] Start Date Coverage End Date [place] [address] [place] [address] [id number] Maite Laurita Self - patient is the insured Medicare [address] [address] [place] [address] [id number] Maite Laurita Self - patient is the insured [facility] [address] [address] [place] [address] [id number] Maite Laurita Self - patient is the insured Medical (General) History Medical History History ICD Code Decreased GFR; Lupus; Rheumatoid arthritis; Surgical History Surgery Date(Month/Year) Knee surgery: left knee - torn ligaments , Date of Procedure: ; 2019-01-20
== END 2025-09-20 13:07 | disposition home or self-care (01) ==
PROVIDERS: PCP Family Medicine; Visit Provider Family Medicine
DX: Z12.31 Encounter for screening mammogram for malignant neoplasm of breast (principal); M81.0 Age-related osteoporosis without current pathological fracture; M85.89 Other specified disorders of bone density and structure, multiple sites
CPT/HCPCS: 77063; 77067; 77080